=== PATIENT | female | born 1995 | race Caucasian/White ===

== ENCOUNTER 2020-06-06 22:46 | Emergency (ER) | payer OTHER, MEDICAID ==
[~2020-06-06] VITALS: Ht 157.5 cm; Wt 120.2 kg
[2020-06-06] MEDS ORDERED: LEXAPRO20 MG PO (23:01)
[2020-06-06] MEDS ORDERED: ADDERALL 10 MG10 MG PO (23:01)
[2020-06-06] MEDS ORDERED: BUSPIRONE HCL10 MG PO (23:01)
[2020-06-06] MEDS ORDERED: TEMAZEPAM15 MG PO (23:02)
[2020-06-07] MEDS ORDERED: NORCO 5-325 TA1 EAC2 PO (01:07)
[2020-06-07] MEDS ORDERED: KEFLEX500 M1 PO (01:07)
[2020-06-07 01:30] VITALS: BP 116/74
== END 2020-06-07 01:30 | disposition home or self-care (01) ==
LOC: M.ERS 22:46
DX: S61.213A Laceration without foreign body of left middle finger without damage to nail, initial encounter (principal); S61.215A Laceration without foreign body of left ring finger without damage to nail, initial encounter; Z88.1 Allergy status to other antibiotic agents; Z88.2 Allergy status to sulfonamides; W26.8XXA Contact with other sharp object(s), not elsewhere classified, initial encounter; Y93.89 Activity, other specified; Y92.89 Other specified places as the place of occurrence of the external cause; Y99.8 Other external cause status

== ENCOUNTER 2020-12-21 15:12 | Emergency (ER) | payer OTHER, MEDICAID ==
[~2020-12-21] VITALS: Ht 177.8 cm; Wt 95.7 kg
[~2020-12-21 15:12] MED LIST: ADDERALL 10 MG10 MG PO; BUSPIRONE HCL10 MG PO; KEFLEX500 M1 PO; LEXAPRO20 MG PO; NORCO 5-325 TA1 EAC2 PO; TEMAZEPAM15 MG PO
[2020-12-21] MEDS ORDERED: ADDERALL 15 MG15 MG PO ×2 (15:34)
[2020-12-21 15:48] LABS: URINE BLOOD 2+ (Negative); URINE CLARITY CLEAR; URINE COLOR YELLOW; URINE GLUCOSE-RANDOM NEGATIVE (Negative); URINE KETONES TRACE (Negative); URINE LEUKOCYTES-REFLEX NEGATIVE (Negative); URINE NITRITE-REFLEX NEGATIVE (Negative); URINE PROTEIN TRACE (Negative); URINE SPECIFIC GRAVITY >= 1.030 (1.005-1.030)
[2020-12-21 15:50] LABS: URINE BILIRUBIN 1+ (Negative)
[2020-12-21 15:51] LABS: ICTOTEST (BILI CONFIRMATORY) Negative (Negative)
[2020-12-21 15:58] LABS: BASOPHILS 0.7 %; HEMOGLOBIN 14.2 gm/dL (12.0-15.0); MCH 28.6 pg (26.0-34.0)
[2020-12-21 15:59] LABS: ABSOLUTE EOSINOPHILS 0.2 thou/uL (0.0-0.7); ABSOLUTE MONOCYTES 0.4 thou/uL (0.0-1.2); ABSOLUTE NEUTROPHILS 2.4 thou/uL (1.6-8.1); EOSINOPHILS 4.1 %; HEMATOCRIT 39.6 % (37.0-47.0); LYMPHOCYTES 39.3 %; MCHC 35.9 g/dL (28.0-37.0); MCV 79.7 fL (80.0-100.0); MONOCYTES 7.8 %; MPV 7.4 fl. (7.2-11.1); NUCLEATED RBCS 0 /100WBC; PLATELET COUNT* 261 thou/uL (150-400); POLYS 48.1 %; RBC 4.97 mil/uL (4.20-5.00); RDW-CV 14.2 % (10.5-14.5); WBC 5.1 thou/uL (4.0-11.0)
[2020-12-21 15:59] LABS: MUCUS >6 Heavy strn/LPF (None Seen); SQUAMOUS >10 Many /LPF (0-3)
[2020-12-21 16:00] LABS: CASTS None Seen /LPF (None Seen)
[2020-12-21 16:01] LABS: CALCIUM OXALATE 0-3 Few /LPF (None Seen); URINE RBC 3-10 Few /HPF (0-2); URINE WBC-REFLEX 0-5 Rare /HPF (0-5)
[2020-12-21 16:03] LABS: BACTERIA-REFLEX 1-9 Few /HPF (None Seen)
[2020-12-21 16:28] LABS: ALBUMIN 2.8 g/dL (3.4-5.0); CALCIUM 8.3 mg/dL (8.5-10.1); CREATININE 0.7 mg/dL (0.6-1.3); POTASSIUM 3.6 mmol/L (3.5-5.1); TOTAL BILIRUBIN 0.4 mg/dL (<0.1-1.0); TOTAL PROTEIN 6.2 g/dL (6.4-8.2)
[2020-12-21] MEDS ORDERED: APAP W/CODEINE1 TA2 PO (17:25)
[2020-12-21] MEDS ORDERED: ONDANSETRON ODT4 MG PO (17:25)
[2020-12-21] MEDS ORDERED: LOPERAMIDE 2 MG2 M1 PO (17:25)
[2020-12-21 17:36] VITALS: BP 106/62
== END 2020-12-21 17:37 | disposition home or self-care (01) ==
LOC: M.ERS 15:12
PROVIDERS: Physician Assistant
DX: N93.9 Abnormal uterine and vaginal bleeding, unspecified (principal); R19.7 Diarrhea, unspecified; R10.32 Left lower quadrant pain; F17.210 Nicotine dependence, cigarettes, uncomplicated; Z88.2 Allergy status to sulfonamides; Z88.1 Allergy status to other antibiotic agents; Z90.89 Acquired absence of other organs

== ENCOUNTER 2020-12-26 08:19 | Emergency (ER) | payer OTHER, MEDICAID ==
[~2020-12-26] VITALS: Ht 177.8 cm; Wt 95.3 kg
[~2020-12-26 08:19] MED LIST changes: +ADDERALL 15 MG15 MG PO; +APAP W/CODEINE1 TA2 PO; +LOPERAMIDE 2 MG2 M1 PO; +ONDANSETRON ODT4 MG PO
[2020-12-26] MEDS ORDERED: HYDROCODON-ACE1 EAC7 PO (09:22)
[2020-12-26 09:46] VITALS: BP 128/92
== END 2020-12-26 09:47 | disposition home or self-care (01) ==
LOC: M.ERS 08:19
DX: K64.5 Perianal venous thrombosis (principal); Z90.89 Acquired absence of other organs; Z88.1 Allergy status to other antibiotic agents; Z88.2 Allergy status to sulfonamides; F17.210 Nicotine dependence, cigarettes, uncomplicated

== ENCOUNTER 2021-06-15 23:08 | Emergency (ER) | payer OTHER, MEDICAID ==
[~2021-06-15] VITALS: Ht 177.8 cm; Wt 88.5 kg
[~2021-06-15 23:08] MED LIST changes: +HYDROCODON-ACE1 EAC7 PO
[2021-06-15] MEDS ORDERED: CLONAZEPAM 0.50.5 M1 PO (23:17)
[2021-06-15 23:28] VITALS: BP 149/93
== END 2021-06-15 23:28 | disposition left against medical advice (07) ==
LOC: M.ERS 23:08
DX: R06.02 Shortness of breath (principal); R05.9 Cough, unspecified; R09.81 Nasal congestion; R53.83 Other fatigue; Z53.21 Procedure and treatment not carried out due to patient leaving prior to being seen by health care provider

== ENCOUNTER 2021-07-27 01:14 | Emergency (ER) | payer OTHER, MEDICAID ==
[~2021-07-27] VITALS: Ht 177.8 cm; Wt 89.8 kg
[~2021-07-27 01:14] MED LIST changes: +CLONAZEPAM 0.50.5 M1 PO
[2021-07-27] MEDS ORDERED: CEPHALEXIN500 MG PO (01:19)
[2021-07-27] MEDS ORDERED: ELIMITE60 GM TOP (02:19)
[2021-07-27] MEDS ORDERED: CARAFATE1 GM PO (02:19)
[2021-07-27 02:45] VITALS: BP 124/75
--- NOTE | 2021-07-27 15:58 | EKG ---
[place] [address] ELECTROCARDIOGRAM REPORT Name: BRIELLE HERNANDEZ Room: [facility]#: [id number] Admission: 07/27/21 Attend Phys: Discharge: 07/27/21 Date of : 89 Date of Service: 07/27/21118 Report #: [id number] THIS REPORT FOR: //name// [facility] ED Test Date: 2021-07-27 Test Time: 01:19:14 Pat Name: BRIELLE HERNANDEZ Department: Room: Gender: F [employer]: SANDEE : 1995 Requested By: Corine Contreras Order Number: [id number] Elise MD: Sung Almonte Measurements Intervals [place] Rate: 73 P: 57 FL: 138 QRS: 31 QRSD: 93 T: 48 QT: 389 QTc: 429 Interpretive Statements Sinus rhythm No previous ECG available for comparison Electronically Signed On 07-27-2021 15:58:32 ALARM SECURITY OR SURVEILLANCE MONITOR by Sung Almonte [email or web address] <ELECTRONICALLY SIGNED> By: Sung Almonte MD, [facility] 07/27/21 1558 8 8 Sung Almonte MD, FACC /EPI
== END 2021-07-27 02:45 | disposition home or self-care (01) ==
LOC: M.ERS 01:14
DX: K21.9 Gastro-esophageal reflux disease without esophagitis (principal); F41.9 Anxiety disorder, unspecified; F32.9 Major depressive disorder, single episode, unspecified; F17.210 Nicotine dependence, cigarettes, uncomplicated; Z90.49 Acquired absence of other specified parts of digestive tract; Z90.89 Acquired absence of other organs; Z88.8 Allergy status to other drugs, medicaments and biological substances; Z88.2 Allergy status to sulfonamides; Z79.899 Other long term (current) drug therapy

== ENCOUNTER 2021-08-03 20:39 | Emergency (ER) | payer OTHER, MEDICAID ==
[~2021-08-03] VITALS: Ht 177.8 cm; Wt 86.2 kg
[~2021-08-03 20:39] MED LIST changes: +CARAFATE1 GM PO; +CEPHALEXIN500 MG PO; +ELIMITE60 GM TOP
[2021-08-03 20:59] VITALS: BP 143/101
== END 2021-08-03 23:06 | disposition left against medical advice (07) ==
LOC: M.ERS 20:39
DX: Z53.21 Procedure and treatment not carried out due to patient leaving prior to being seen by health care provider (principal)